=== PATIENT | male | born 1940 | race Caucasian/White ===

== ENCOUNTER 2016-06-19 07:48 | Inpatient (IN) | payer MEDICARE, MEDICAID ==
[~2016-06-19] VITALS: Ht 177.8 cm; Wt 77.7 kg
[2016-06-19] MEDS ORDERED: MIDO5 PO (08:00)
[2016-06-19] MEDS ORDERED: DSS100 PO (08:00)
[2016-06-19] MEDS ORDERED: 0.9% SODIUM CHLORIDE 10 ML SYRINGE IVP PRN (08:00)
[2016-06-19] MEDS ORDERED: LACT10SO8 PO (08:00)
[2016-06-19] MEDS ORDERED: AMIO200T44 PO (08:00)
[2016-06-19] MEDS ORDERED: ASPI81 PO (08:00)
[2016-06-19] MEDS ORDERED: ATOR40TA28 PO (08:00)
[2016-06-19] MEDS ORDERED: TRAM50TA4 PO (08:00)
[2016-06-19] MEDS ORDERED: CLOP75 PO (08:00)
[2016-06-19] MEDS ORDERED: LEVE500L PO (08:00)
[2016-06-19] MEDS ORDERED: FERSL PO (08:00)
[2016-06-19] MEDS ORDERED: AZEL6DRO5 OU (08:00)
[2016-06-19] MEDS ORDERED: LEVO25TA4 PO (08:00)
[2016-06-19 08:24] LABS: HEMATOCRIT 38.8 % (41-53); MEAN CORPUSCULAR HEMOGLOBIN 31.9 pg (26.0-34.0); MEAN CORPUSCULAR VOLUME 103 fL (80-100); PLATELET COUNT (AUTO) 290 K/uL (150-450); RED BLOOD CELL COUNT(AUTO) 3.76 MIL/uL (4.50-5.90); RED CELL DISTRIBUTION WIDTH 23.5 % (11.5-14.5)
[2016-06-19 08:32] LABS: WHITE BLOOD COUNT (AUTO) 40.8 K/uL (4.5-11.0)
[2016-06-19 08:40] LABS: INR 1.2 (0.9-1.1); PROTHROMBIN TIME 12.2 SEC (9.4-11.6)
[2016-06-19 08:42] LABS: ANION GAP 11 mmol/L (8-16); CARBON DIOXIDE 33 mmol/L (22-29); CHLORIDE 100 mmol/L (98-107); CREATININE 5.11 mg/dL (0.60-1.30); GLOMERULAR FILTR. RATE CALC 11 mL/min (>60); POTASSIUM 3.5 mmol/L (3.5-5.1); SODIUM SERUM 144 mmol/L (136-145); UREA NITROGEN, BLOOD 95 mg/dL (7-18)
[2016-06-19] MEDS ORDERED: SODIUM CHLORIDE 0.9% 1,000 ML IV ONE ×2 (08:45→09:15)
[2016-06-19 08:47] LABS: ALANINE AMINOTRANSFERASE 19 U/L (12-78); ALBUMIN 1.7 g/dL (3.4-5.0); ASPARTATE AMINOTRANSFERASE 21 U/L (15-37); BILIRUBIN,TOTAL 0.5 mg/dL (0.1-1.0); TOTAL PROTEIN, SERUM 6.6 g/dL (6.4-8.2)
[2016-06-19 08:57] LABS: BAND NEUTROPHILS % (MANUAL) 3 % (1-5); LACTIC ACID 3.7 mmol/L (0.4-2.0); LYMPHOCYTES % (MANUAL) 3 % (22-44); TOTAL CELLS COUNTED 100; WBC MORPHOLOGY TOXIC GRANULATION
[2016-06-19 08:58] LABS: RBC MORPHOLOGY COMMENT ABNORMAL R
[2016-06-19] MEDS ORDERED: FUROSEMIDE 40 MG/4 ML VIAL IVP ONE (09:15)
[2016-06-19 10:10] LABS: REFLEX LACTIC ACID? YES YES
[2016-06-19] MEDS ORDERED: ALBUMIN HUMAN 25%-12.5GM/50ML IV BOTTLE IV ONE (12:00)
[2016-06-19] MEDS ORDERED: HEPARIN SODIUM,PORCINE 1,000 UNITS/ML VIAL IVP ONE (12:00)
[2016-06-19] MEDS ORDERED: ACETAMINOPHEN 1000 MG/ISO-OSM 100 ML IV ONE (13:15)
[2016-06-19] MEDS ORDERED: LEVE500T53 PO (13:19)
[2016-06-19] MEDS ORDERED: CefTRIAXone 1 GM/DEXTROSE 50 ML IV ONE (14:45)
[2016-06-19] MEDS ORDERED: VANCOMYCIN HCL 1 GM/D5% WATER 200 ML IV PRN (17:45)
[2016-06-19] MEDS ORDERED: VANCOMYCIN HCL 1 GM/D5% WATER 200 ML IV ONE (19:00)
[2016-06-19 20:00] VITALS: BP 98/61
[2016-06-19 20:40] LABS: ABG A-A DIFF O2 123.1 mmHg (10-20.0); ABG BASE EXCESS -5.8 mmol/L (-2.0-3.0); ABG HCO3 20.3 mmol/L (22.0-26.0); ABG OXYHEMOGLOBIN 93.1 % (94.0-100.0); ABG PCO2 37 mmHg (35-45); ABG PH 7.345 (7.35-7.450); TEMPERATURE, FAHRENHEIT, BG 100.5 FAHREN (96.0-98.6)
[2016-06-19 20:41] LABS: ALLEN TEST, BLOOD GAS Positive; IPAP, BG 14 cm H2O
[2016-06-19] MEDS ORDERED: NOREPINEPHRINE 4 MG/D5%-WATER 250 ML IV PRN (21:00)
[2016-06-19] MEDS ORDERED: PHENYLEPHRINE 200 MG/D5%-WATER 250 ML IV PRN (21:00)
[2016-06-20] VITALS: BP 121/71
[2016-06-20] MEDS ORDERED: SODIUM CHLORIDE 0.9% 250 ML IV ONE (01:31)
[2016-06-20] MEDS: PIPERACILLIN SODIUM/TAZOBACTAM 2.25 GM in DEXTROSE 5%-WATER 50 ML IV SCH ×4 (02:24→18:09)
[2016-06-20] MEDS: ALBUMIN HUMAN 25%-12.5GM/50ML 50 ML IV SCH ×4 (02:28→18:09)
[2016-06-20 04:00] VITALS: BP 97/65
[2016-06-20 06:53] LABS: HEMATOCRIT 41.3 % (41-53); HEMOGLOBIN 12.8 g/dL (13.5-17.5); MEAN CORPUSCULAR HEMOGLOBIN 32.4 pg (26.0-34.0); MEAN CORPUSCULAR HGB CONC 31.1 G/dL (31.0-37.0); MEAN CORPUSCULAR VOLUME 104 fL (80-100); PLATELET COUNT (AUTO) 213 K/uL (150-450); RED BLOOD CELL COUNT(AUTO) 3.97 MIL/uL (4.50-5.90); RED CELL DISTRIBUTION WIDTH 24.1 % (11.5-14.5)
[2016-06-20 06:57] LABS: CALCIUM, TOTAL 7.8 mg/dL (8.8-10.5); CREATININE 3.71 mg/dL (0.60-1.30)
[2016-06-20 07:31] LABS: WHITE BLOOD COUNT (AUTO) 38.8 K/uL (4.5-11.0)
[2016-06-20 08:00] VITALS: BP 91/77
[2016-06-20] MEDS ORDERED: MANNITOL 25%-12.5 GM/50 ML VIAL IVP PRN (08:30)
[2016-06-20] MEDS ORDERED: HEPARIN SODIUM,PORCINE 1,000 UNITS/ML VIAL IVP ONE ×3 (08:30→17:14)
[2016-06-20 09:02] LABS: TOTAL CELLS COUNTED 100
[2016-06-20 09:08] LABS: BAND NEUTROPHILS % (MANUAL) 33 % (1-5); LYMPHOCYTES % (MANUAL) 1 % (22-44); METAMYELOCYTES % 2 % (0-0); MYELOCYTES % 2 % (0-0); WBC MORPHOLOGY TOXIC GRANULATION
[2016-06-20 09:09] LABS: RBC MORPHOLOGY COMMENT ABNORMAL RBC MORPH
[2016-06-20] MEDS ORDERED: ALBUMIN HUMAN 25%-12.5GM/50ML IV BOTTLE IV PRN (09:15)
[2016-06-20] MEDS ORDERED: SODIUM CHLORIDE 0.9% 2,000 ML IV ONE ×2 (09:37→11:05)
[2016-06-20] MEDS ORDERED: PHENYLEPHRINE 200 MG/D5%-WATER 250 ML IV ONE (11:05)
[2016-06-20 12:00] VITALS: BP_SYST 91; BP_SYST 98; BP_DIAS 70; BP_DIAS 77
[2016-06-20] MEDS ORDERED: ACETAMINOPHEN 650 MG/20.3 ML SOLUTION UDCUP PEG PRN (15:45)
[2016-06-20 16:00] VITALS: BP 98/70
[2016-06-20] MEDS ORDERED: ALBUMIN HUMAN 25%-12.5GM/50ML IV BOTTLE IV ONE (17:14)
[2016-06-20] MEDS ORDERED: MANNITOL 25%-12.5 GM/50 ML VIAL IVP ONE (17:14)
[2016-06-20] MEDS ORDERED: NOREPINEPHRINE 4 MG/D5%-WATER 250 ML IV PRN (18:46)
[2016-06-20 20:00] VITALS: BP 131/41
== END 2016-06-21 00:33 | disposition expired | DRG 871 ==
LOC: EMS 07:50 → 5S 14:09 → ICU 21:44
PROVIDERS: ADMIT Hospitalist; ATTEND Hospitalist
PROC: 5A09457 Assistance with Respiratory Ventilation, 24-96 Consecutive Hours, Continuous Positive Airway Pressure (ICD-10-PCS; principal; 2016-06-19)
PROC: 5A1D00Z (ICD-10-PCS; 2016-06-19)
DX: A41.9 Sepsis, unspecified organism (principal); N18.6 End stage renal disease; G93.40 Encephalopathy, unspecified; E43 Unspecified severe protein-calorie malnutrition; R65.21 Severe sepsis with septic shock; J96.00 Acute respiratory failure, unspecified whether with hypoxia or hypercapnia; J18.9 Pneumonia, unspecified organism; I50.33 Acute on chronic diastolic (congestive) heart failure; J98.11 Atelectasis; A04.7 Enterocolitis due to Clostridium difficile; I13.2 Hypertensive heart and chronic kidney disease with heart failure and with stage 5 chronic kidney disease, or end stage renal disease; N25.81 Secondary hyperparathyroidism of renal origin; R47.01 Aphasia; F03.90 Unspecified dementia, unspecified severity, without behavioral disturbance, psychotic disturbance, mood disturbance, and anxiety; D63.1 Anemia in chronic kidney disease; E11.22 Type 2 diabetes mellitus with diabetic chronic kidney disease; E11.65 Type 2 diabetes mellitus with hyperglycemia; E78.5 Hyperlipidemia, unspecified; F41.1 Generalized anxiety disorder; G40.909 Epilepsy, unspecified, not intractable, without status epilepticus; G20 Parkinson's disease; I50.9 Heart failure, unspecified; Z99.2 Dependence on renal dialysis; Z98.2 Presence of cerebrospinal fluid drainage device; Z79.84 Long term (current) use of oral hypoglycemic drugs; Z79.82 Long term (current) use of aspirin; Z79.1 Long term (current) use of non-steroidal anti-inflammatories (NSAID); Z79.899 Other long term (current) drug therapy
CPT/HCPCS: 70450; 71250; 82271; 82805; 83605; 87040; 87081; 87324; 87340; 87449; 93005; 94660; 94799; 96361; 96365; 96366; 96367; 96375; 99291; J0131; J0696; J1644; J1940; J2150; J2370; J2543; J3370; J7030; J7050; J7060; P9047